=== PATIENT | male | born 2000 | race American Indian/Alaskan Native ===

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

== ENCOUNTER 2023-11-29 19:49 | Emergency (ER) | payer SELFPAY ==
[~2023-11-29] VITALS: Ht 182.9 cm; Wt 77.1 kg
[2023-11-29 20:05] VITALS: BP 143/90
== END 2023-11-29 22:10 | disposition home or self-care (01) ==
LOC: ER 19:49
DX: U07.1 COVID-19 (principal)
CPT/HCPCS: 99283